=== PATIENT | female | born 1990 | race Caucasian/White ===

== ENCOUNTER 2017-05-16 04:28 | Emergency (ER) | payer MEDICARE | END 2017-05-16 05:27 | disposition other institution (70) | LOC: ER 04:28 | DX: O67.9 Intrapartum hemorrhage, unspecified (principal); O72.1 Other immediate postpartum hemorrhage; Z3A.40 40 weeks gestation of pregnancy; Z37.0 Single live birth | CPT/HCPCS: 36415 ==